=== PATIENT | female | born 2000 | race African-American/Black ===

== ENCOUNTER 2023-07-09 05:07 | Inpatient (IN) | payer OTHER ==
[2023-07-09] MEDS ORDERED: FAMOTIDINE 10 MG/ML VIAL IVPB ONE (06:05)
[2023-07-09] MEDS ORDERED: ONDANSETRON 4 MG/2 ML VIAL ONE (06:05)
[2023-07-09] MEDS ORDERED: ACETAMINOPHEN INJECTION 100 ML IVPB ONE (06:05)
[2023-07-09] MEDS: ACETAMINOPHEN 1000 MG/100 ML BAG IVPB ONE (06:46)
[2023-07-09] MEDS: FAMOTIDINE 20 MG/50 ML IVPB 20 MG/50 ML MG IVPB ONE (06:46)
[2023-07-09] MEDS: ONDANSETRON 4 MG/2 ML VIAL IVPB ONE (06:46)
[2023-07-09] MEDS: SODIUM CHLORIDE 0.9% 500 ML INFUS.BAG IV ONE (06:46)
[2023-07-09 07:02] LABS: BASO % 0.4 % (0-2.0); HEMATOCRIT 39.2 % (32.4-45.2); HEMOGLOBIN 13.6 GM/dL (10.7-15.3); LYMPH % 10.9 % (8-40); MCH 30.9 pg (25.7-33.7); MCHC 34.8 g/dl (32.0-36.0); MEAN CELL VOLUME 88.9 fl (80-96); MEAN PLT VOLUME 7.2 fl (7.5-11.1); MONO % 2.7 % (3.8-10.2); PLATELET COUNT 366 10^3/uL (134-434); RBC 4.41 M/mm3 (3.60-5.2); RDW 12.5 % (11.6-15.6); WHITE BLOOD COUNT 12.9 K/mm3 (4.0-10.0)
[2023-07-09 07:07] LABS: EPI CELLS 12 /uL (0-25.1); HYALINE CASTS 1 /uL (0-3.1); URINE APPEARANCE CLEAR; URINE BACTERIA 785 /uL (0-1359); URINE BILIRUBIN NEGATIVE (NEGATIVE); URINE COLOR YELLOW; URINE GLUCOSE (UA) NEGATIVE (NEGATIVE); URINE KETONE 1+ (NEGATIVE); URINE LEUK ESTERASE NEGATIVE (NEGATIVE); URINE NITRITE NEGATIVE (NEGATIVE); URINE PROTEIN 1+ (NEGATIVE); URINE RBC 29 /uL (0-23.9); URINE UROBILINOGEN 0.2 mg/dL (0.2-1.0); URINE WBC 20 /uL (0-25.8)
[2023-07-09 07:16] LABS: POTASSIUM 4.1 mmol/L (3.5-5.1)
[2023-07-09 07:18] LABS: CALCIUM 9.5 mg/dL (8.5-10.1)
[2023-07-09 07:19] LABS: ALBUMIN 3.6 g/dl (3.4-5.0)
[2023-07-09 07:22] LABS: CREATININE 1.4 mg/dL (0.55-1.3)
[2023-07-09 07:23] LABS: BILIRUBIN,TOTAL 0.3 mg/dL (0.2-1); TOT PROT 6.9 g/dl (6.4-8.2)
[2023-07-09] MEDS: POLYETHYLENE GLYCOL (HEALTHYLAX) 3350 17 GM PACKET PO SCH (08:30)
[2023-07-09] MEDS ORDERED: PANTOPRAZOLE SODIUM 40 MG/100 ML BAG IVPB ONE (10:42)
[2023-07-09] MEDS: PANTOPRAZOLE SODIUM 40 MG VIAL IVPUSH ONE (10:50)
[2023-07-09] MEDS: SODIUM CHLORIDE 500 ML IV STA (10:50)
[2023-07-09] MEDS: PIPERACILLIN/TAZOB 3.375 GM 3.375 GM in DEXTROSE 5%-WATER - 50 ML IVPB ONE (15:44)
[2023-07-09] MEDS ORDERED: ACETAMINOPHEN 1000 MG/100 ML BAG IVPB PRN (18:24)
[2023-07-09] MEDS ORDERED: valACYclovir HCL 500 MG TABLET (FP) PO PRN (18:25)
[2023-07-09 18:39] VITALS: BMI 40.4
[2023-07-09] MEDS: CARVEDILOL 6.25 MG TABLET (FP) PO SCH (21:34)
[2023-07-09] MEDS: SENNOSIDES 8.6MG TABLET (FP) PO SCH (21:34)
[2023-07-09] MEDS: DOCUSATE SODIUM 100 MG CAPSULE (FP) PO SCH (21:34)
[2023-07-09] MEDS: cloZAPine 100 MG TABLET PO SCH (21:35)
[2023-07-09] MEDS: cloZAPine 25 MG TABLET PO SCH (21:35)
[2023-07-09] MEDS: HALOPERIDOL 5 MG TABLET PO SCH (21:36)
[2023-07-09] MEDS: LACTATED RINGERS SOLUTION 1,000 ML IV SCH (21:43)
[2023-07-10 07:53] LABS: BASO % 0.4 % (0-2.0); HEMATOCRIT 37.1 % (32.4-45.2); HEMOGLOBIN 13.1 GM/dL (10.7-15.3); INR 1.17 (0.83-1.09); LYMPH % 32.8 % (8-40); MCH 31.4 pg (25.7-33.7); MCHC 35.2 g/dl (32.0-36.0); MEAN PLT VOLUME 6.9 fl (7.5-11.1); MONO % 7.2 % (3.8-10.2); NEUT % 59.6 % (42.8-82.8); PLATELET COUNT 314 10^3/uL (134-434); PROTHROMBIN TIME (PATIENT) 13.2 SEC (9.7-13.0); RBC 4.16 M/mm3 (3.60-5.2); RDW 12.5 % (11.6-15.6); WHITE BLOOD COUNT 7.6 K/mm3 (4.0-10.0)
[2023-07-10 07:56] LABS: ACTIVATED PTT 32.6 SECONDS (25.2-36.5)
[2023-07-10 08:10] LABS: POTASSIUM 3.8 mmol/L (3.5-5.1)
[2023-07-10 08:13] LABS: ALBUMIN 3.1 g/dl (3.4-5.0); BLOOD UREA NITROGEN 11.7 mg/dL (7-18); CALCIUM 8.9 mg/dL (8.5-10.1)
[2023-07-10 08:14] LABS: MAGNESIUM 1.8 mg/dL (1.8-2.4)
[2023-07-10 08:16] LABS: CREATININE 1.3 mg/dL (0.55-1.3); PHOSPHOROUS 3.5 mg/dL (2.5-4.9)
[2023-07-10 08:18] LABS: BILIRUBIN,TOTAL 0.3 mg/dL (0.2-1); TOT PROT 6.2 g/dl (6.4-8.2)
[2023-07-10] MEDS ORDERED: NORGESTREL ETHINYL ESTRADIOL PO SCH (10:00)
[2023-07-10] MEDS: FAMOTIDINE 20 MG TABLET PO SCH (10:57)
[2023-07-10] MEDS: POLYETHYLENE GLYCOL (HEALTHYLAX) 3350 17 GM PACKET PO SCH (10:57)
[2023-07-10] MEDS: SODIUM BICARBONATE 650 MG TABLET PO SCH (10:57)
[2023-07-10] MEDS: lamoTRIgine 25 MG TABLET PO SCH (10:58)
[2023-07-10] MEDS: NALTREXONE HCL 50 MG TABLET PO SCH (10:58)
[2023-07-10] MEDS: ENOXAPARIN NA (PORCINE) 40 MG/0.4 ML DISP.SYRIN SQ SCH (10:58)
[2023-07-10] MEDS: ACETAMINOPHEN 1000 MG/100 ML BAG IVPB ONE (21:01)
[2023-07-11 07:38] LABS: BASO % 0.5 % (0-2.0); HEMATOCRIT 39.3 % (32.4-45.2); HEMOGLOBIN 13.4 GM/dL (10.7-15.3); LYMPH % 29.7 % (8-40); MCH 30.3 pg (25.7-33.7); MCHC 34.1 g/dl (32.0-36.0); MEAN CELL VOLUME 88.8 fl (80-96); MEAN PLT VOLUME 6.9 fl (7.5-11.1); NEUT % 62.8 % (42.8-82.8); PLATELET COUNT 320 10^3/uL (134-434); RBC 4.42 M/mm3 (3.60-5.2); RDW 12.7 % (11.6-15.6); WHITE BLOOD COUNT 7.8 K/mm3 (4.0-10.0)
[2023-07-11 08:05] LABS: ALBUMIN 3.2 g/dl (3.4-5.0); BLOOD UREA NITROGEN 11.1 mg/dL (7-18)
[2023-07-11 08:08] LABS: CREATININE 1.3 mg/dL (0.55-1.3)
[2023-07-11 08:10] LABS: BILIRUBIN,TOTAL 0.3 mg/dL (0.2-1); TOT PROT 6.3 g/dl (6.4-8.2)
[2023-07-11] MEDS: POLYETHYLENE GLYCOL (HEALTHYLAX) 3350 17 GM PACKET PO ONE (10:07)
[2023-07-11] MEDS: POLYETHYLENE GLYCOL (HEALTHYLAX) 3350 17 GM PACKET PO SCH (14:38)
[2023-07-11] MEDS ORDERED: ACETAMINOPHEN 1000 MG/100 ML BAG IVPB PRN (21:57)
[2023-07-11] MEDS: ACETAMINOPHEN 1000 MG/100 ML BAG IVPB ONE (22:22)
[2023-07-12] MEDS: ACETAMINOPHEN 325 MG TABLET (FP) PO PRN (17:45)
[2023-07-13 13:45] VITALS: BP 118/83; PULSE 107; RESP 20; TEMP 98.4
== END 2023-07-13 14:46 | disposition home or self-care (01) | DRG 247 ==
LOC: JER 05:07 → JERBED 16:08 → J7W 18:03
PROVIDERS: ADMIT Internal Medicine; ATTEND Nurse Practitioner Family
DX: K56.41 Fecal impaction (principal); N17.9 Acute kidney failure, unspecified; F25.8 Other schizoaffective disorders; E66.01 Morbid (severe) obesity due to excess calories; Z68.41 Body mass index [BMI] 40.0-44.9, adult; R16.0 Hepatomegaly, not elsewhere classified; F79 Unspecified intellectual disabilities; I10 Essential (primary) hypertension; K80.20 Calculus of gallbladder without cholecystitis without obstruction; K76.0 Fatty (change of) liver, not elsewhere classified; G40.909 Epilepsy, unspecified, not intractable, without status epilepticus
CPT/HCPCS: 0241U-QW; 36415; 74176-TC; 76705-TC; 78226-TC; 80053; 81003; 82570; 83690; 83735; 84100; 84300; 84703; 85025; 85610; 85730; 86850; 86900; 86901; 87086; 97161-GP; 99285-25; A9537; J0131

== ENCOUNTER 2024-04-24 16:54 | Observation (INO) | payer OTHER ==
[2024-04-24 17:10] VITALS: BMI 36.6
[2024-04-24 19:01] LABS: BASO % 0.4 % (0-2.0); EOS % 0.1 % (0-4.5); HEMATOCRIT 39.8 % (32.4-45.2); HEMOGLOBIN 13.9 GM/dL (10.7-15.3); LYMPH % 24.5 % (8-40); MCH 31.5 pg (25.7-33.7); MCHC 34.8 g/dl (32.0-36.0); MEAN CELL VOLUME 90.4 fl (80-96); MEAN PLT VOLUME 6.5 fl (7.5-11.1); MONO % 5.9 % (3.8-10.2); NEUT % 69.1 % (42.8-82.8); PLATELET COUNT 347 10^3/uL (134-434); RDW 12.7 % (11.6-15.6)
[2024-04-24 19:20] LABS: POTASSIUM 4.2 mmol/L (3.5-5.1)
[2024-04-24 19:22] LABS: ALBUMIN 3.4 g/dl (3.4-5.0); BLOOD UREA NITROGEN 16.6 mg/dL (7-18); CALCIUM 8.9 mg/dL (8.5-10.1)
[2024-04-24 19:25] LABS: CREATININE 1.3 mg/dL (0.55-1.3)
[2024-04-24 19:27] LABS: BILIRUBIN,TOTAL 0.2 mg/dL (0.2-1); TOT PROT 6.5 g/dl (6.4-8.2)
[2024-04-25] MEDS: MELATONIN 1 MG TABLET PO ONE (01:08)
[2024-04-25] MEDS: CARVEDILOL 12.5 MG TABLET (FP) PO SCH (09:38)
[2024-04-25] MEDS: FAMOTIDINE 20 MG TABLET PO SCH (09:38)
[2024-04-25] MEDS: POLYETHYLENE GLYCOL (HEALTHYLAX) 3350 17 GM PACKET PO SCH (09:38)
[2024-04-25] MEDS: SODIUM BICARBONATE 650 MG TABLET PO SCH (09:38)
[2024-04-25] MEDS: lamoTRIgine 25 MG TABLET PO SCH (09:38)
[2024-04-25] MEDS ORDERED: ENOXAPARIN NA (PORCINE) 40 MG/0.4 ML DISP.SYRIN SQ SCH (10:00)
[2024-04-25 10:10] LABS: HEMATOCRIT 37.2 % (32.4-45.2); HEMOGLOBIN 12.8 GM/dL (10.7-15.3); MCH 31.2 pg (25.7-33.7); MCHC 34.4 g/dl (32.0-36.0); MEAN CELL VOLUME 90.9 fl (80-96); MEAN PLT VOLUME 6.8 fl (7.5-11.1); PLATELET COUNT 321 10^3/uL (134-434); RDW 12.2 % (11.6-15.6)
[2024-04-25 10:23] LABS: POTASSIUM 3.6 mmol/L (3.5-5.1)
[2024-04-25 10:27] LABS: ALBUMIN 3.1 g/dl (3.4-5.0); CALCIUM 8.8 mg/dL (8.5-10.1)
[2024-04-25 10:28] LABS: MAGNESIUM 1.8 mg/dL (1.8-2.4)
[2024-04-25 10:31] LABS: CREATININE 1.2 mg/dL (0.55-1.3); PHOSPHOROUS 3.6 mg/dL (2.5-4.9)
[2024-04-25 10:32] LABS: BILIRUBIN,TOTAL 0.5 mg/dL (0.2-1); TOT PROT 5.9 g/dl (6.4-8.2)
[2024-04-25] MEDS: DOCUSATE SODIUM 100 MG CAPSULE (FP) PO SCH (13:05)
[2024-04-25] MEDS: ACETAMINOPHEN 325 MG TABLET (FP) PO ONE (18:08)
[2024-04-26 06:16] VITALS: TEMP 98.4
[2024-04-26 11:11] VITALS: BP 104/64; PULSE 88; RESP 16
[2024-04-27 20:09] LABS: NORCLOZAPINE 191 ng/mL (Not Estab.)
== END 2024-04-26 17:10 ==
LOC: JER 16:54 → JERBED 20:03 → INTOOBSV 20:03 → J5S 23:23
PROVIDERS: ADMIT Internal Medicine
DX: R94.8 Abnormal results of function studies of other organs and systems (principal); T42.4X1A Poisoning by benzodiazepines, accidental (unintentional), initial encounter; X58.XXXA Exposure to other specified factors, initial encounter; G93.49 Other encephalopathy; F20.9 Schizophrenia, unspecified; I10 Essential (primary) hypertension; R56.9 Unspecified convulsions; F79 Unspecified intellectual disabilities; K59.09 Other constipation
CPT/HCPCS: 36415; 80053; 83735; 84100; 84484; 85025; 85027; 93005; 93010; 99285-25; G0378; G0480